=== PATIENT | female | born 1970 | race Caucasian/White ===

== ENCOUNTER 2018-05-28 07:26 | Outpatient (CLI) | payer MEDICAID, SELFPAY ==
--- NOTE | 2018-05-28 06:00 | DI.RAD_ITS ---
SYMPTOM/DIAGNOSIS: ARTHRALGIA OF RT KNEE, RT GENICULAR RADIOFREQUENCY ABLATION C-ARM: Fluoroscopy Time: 52 seconds Fluoroscopy was utilized by Dr. Solares during the performance of a right genicular radiofrequency ablation. Please refer to the procedure report for complete details.
[2018-05-28 07:37] VITALS: BP 105/64; PULSE 75; RESP 24; TEMP 36.3; O2SAT 99
[2018-05-28] MEDS: fentaNYL 100 MCG/2 ML VIAL IVP (08:36)
[2018-05-28] MEDS: Midazolam 2 MG/2 ML VIAL IVP (08:36)
[2018-05-28] MEDS: Lactated Ringers 1,000 ML 80 ML IV (08:37)
[2018-05-28] MEDS: Lidocaine 2% Pres-Free 5 ML VIAL IJ (09:00)
[2018-05-28 09:08] VITALS: BP 132/69; PULSE 70; RESP 17; O2SAT 96
--- NOTE | 2018-05-28 09:18 | PDOC.PAIN_ITS ---
Pain Clinic Procedure Note Current Active Problems Problem Status Onset Knee osteoarthritis Acute RIGHT GENICULAR NERVE RADIOFREQUENCY ABLATION WITH THE COOLIEF MACHINE Date of Service: 05/28/2018 Patient: Nazanin Pang Provider: Immanuel Solares DO, MPH COMMENTS: Previous Genicular nerve block to the RIGHT knee with >80% pain relief for 4 hours.. The patient has been referred [facility] for RIGHT genicular nerve radiofrequency ablation. The patient was interviewed and the medical record reviewed. There were no medical, pharmacologic, radiographic or other structural contraindications to attempting fluoroscopically guided RIGHT genicular nerve radiofrequency ablation. Risks and potential side effects as well as potential benefit of the procedure were reviewed with the patient, and HER voiced concerns were addressed. After I believed that the patient was completely informed, the printed consent form was signed. Standard time-out procedure was performed. The patient was placed in the supine position on the fluoroscopy table and automated blood pressure cuff and pulse oximeter applied. The skin entry points for approaching the RIGHT superolateral genicular nerve, the superomedial genicular nerve and the inferomedial genicular was identified under the most advantageous fluoroscopic view and marked. Following thorough Chlorhexadine preparation of the skin and draping, 1% lidocaine infiltration of the skin entry point and subcutaneous tissues was accomplished using a 1.5 25G needle. Next, the 10 cm 18G RF Cannula with a 10 mm active tip was advanced to os at the location of the specific nerve roots (3) using fluoroscopic guidance. Next, sensory and motor testing was performed and no abnormal findings were found. Next, 1 cc of 2% Lidocaine was injected at each site. The lesion was then created with 80 degrees C for 90 seconds. Each needle was advance 1 cm and the lesion was completed again. Each cannula was advanced until the tip reached the posterior aspect of the bone shaft. 1/3 cc of Depomedrol (40 mg/cc) was then injected at each site followed by 2 cc of 0.5% Bupivacaine as the needle was withdrawn. The needles were removed without difficulty. The patient's vital signs were stable throughout the procedure and were as recorded in the docflowsheet by the nursing staff. If given, dosages of intravenous drugs for anxiolysis and analgesia were documented in MAR. Follow up plans and appointments were discussed with the the patient. Post procedure instruction was given as documented in nursing documentation and having met discharge criteria, she was [facility] from the [facility]. COMMENTS: No complications. Marie WJ1, Nabeel SJ, Nitin JG, Deena JG, Daniel VILLATORO, Park PH, Paez JW. Radiofrequency treatment relieves chronic knee osteoarthritis pain: a double-blind randomized controlled trial. Pain. 2010;152(3):481-7. doi: 10.1016/j.pain.2010.09.029. Danielle S1, Curt ON2, Fermin Y3, ?zl?seferino P2, Fransisco U1, Foreign ?m?rl? I. Which one is more effective for the clinical treatment of chronic pain in knee osteoarthritis: radiofrequency neurotomy of the genicular nerves or intra- articular injection? Int J Rheum Dis. 2016 Nov 11. F/U with our office as needed I personally performed this entire procedure. Immanuel Solares DO, MPH Attending Physician CC: @PCP@ @PCPADDR@
[2018-05-28] MEDS: Bupivacaine 0.5% Pres-Free 30 ML VIAL IJ (09:28)
[2018-05-28] MEDS: methylPREDNISolone ACETATE 40 MG/ML VIAL IJ (09:29)
== END 2018-05-28 07:46 ==
PROVIDERS: PCP Internal Medicine; Visit Provider Preventive Medicine Occupational Medicine
DX: M17.11 Unilateral primary osteoarthritis, right knee (principal)
CPT/HCPCS: 64640 ×3; 77002; J1030; J2250; J3010